=== PATIENT | female | born 1995 | race African-American/Black ===

== ENCOUNTER 2016-11-10 15:48 | Emergency (ER) | payer MEDICAID ==
[~2016-11-10] VITALS: Ht 177.8 cm; Wt 58.1 kg
[~2016-11-10 15:48] MED LIST: ACETAMINOPHEN-1 EAC1 ORAL; ALBUTEROL SULF8.5 GM INH; ALBUTEROL2.5 MG/3 M INH; ATARAX25 MG ORAL; AURALGAN OTIC1 DROP RIGHT EAR; BACTRIM DS TAB1 EAC1 ORAL; BENTYL10 MG ORAL; CLINDAMYCIN HC300 MG ORAL; CYCLOBENZAPRINE10 MG ORAL; DEPAKOTE500 MG PO; DIPHENHYDRAMINE25 M1 ORAL; IBUPROFEN600 MG ORAL; KEFLEX500 MG ORAL; LORATADINE10 M2 PO; MONTELUKAST SOD10 MG ORAL; MYLANTA LIQUID355 ML PO; OFLOXACIN10 ML OP; PHENAZOPYRIDIN100 MG ORAL; PROPYLTHIOURACI50 MG PO; PROTONIX40 MG PO; QUETIAPINE FUM200 MG ORAL; QVAR7.3 GM INH; TAPAZOLE10 M1 PO; VIBRAMYCIN100 MG ORAL; ZOFRAN ODT4 MG ORAL
[2016-11-10 16:05] VITALS: BP 106/72
[2016-11-10] MEDS ORDERED: Metoclopramide 10mg/2ml Inj IVP ONE (16:30)
--- NOTE | 2016-11-10 16:56 | Emergency Room Report ---
History of Present Illness General Chief Complaint: Head Injury Present Illness HPI The patient is a 20-year-old female presenting for headache and dizziness which began 2 weeks prior after briefly losing consciousness and falling to the floor. The patient states that she was at a marijuana dispensary 2 weeks prior , felt dizzy, and was reported to be unconscious for 5 minutes per her sister. The patient states that this has never happened in the past. Pt does admit to mild nausea but denies vomiting. Pt denies blurred vision, abd pain, neck pain/ stiffness, SOB, CP The patient also has a history of eczema and is complaining of a rash which has noticed of the face, arms, torso, and legs. This is described as itchy. The pt admits to recently using new detergent. Allergies: Coded Allergies: PEANUT (Verified Allergy, Severe, ALL NUTS, 08/16/16) CITRUS AND DERIVATIVES (Unverified Allergy, Unknown, 08/16/16) STRAWBERRY (Unverified Allergy, Unknown, 08/16/16) Patient History Past Medical History: see triage record Pertinent Family History: none Last Menstrual Period: n/a (norplant) Reviewed Nursing Documentation: PMH: Agreed, PSxH: Agreed Nursing Documentation-PMH Past Medical History: No History, Except For Hx Asthma: Yes Hx Gastrointestinal Problems: Yes - stomach ulcers Review of Systems All Other Systems: negative except mentioned in HPI Physical Exam Vital Signs Date Time Temp Pulse Resp B/P Pulse Ox O2 Delivery O2 Flow Rate FiO2 11/10/16 15:54 98.2 116 18 106/72 99 Room Air Sp02 EP Interpretation: reviewed, normal General Appearance: no apparent distress, alert, GCS 15, non-toxic Head: normocephalic, atraumatic Eyes: bilateral eye PERRL, bilateral eye normal inspection ENT: hearing grossly normal, normal pharynx, no angioedema, normal voice Neck: full range of motion, supple/symm/no masses Respiratory: chest non-tender, lungs clear, normal breath sounds, no wheezing, speaking full sentences Cardiovascular #1: regular rate, rhythm, no edema Gastrointestinal: normal bowel sounds, non tender, soft, non-distended, no guarding, no rebound Genitourinary: normal inspection, no CVA tenderness Musculoskeletal: back normal, gait/station normal, normal range of motion, non- tender Neurologic: alert, oriented x3, responsive, motor strength/tone normal, sensory intact, speech normal Psychiatric: judgement/insight normal, memory normal, mood/affect normal, no suicidal/homicidal ideation Skin: warm/dry, well hydrated, rash - erythematous pruritic rash of bilat arms , torso, and legs. Eczematous rash of bilat antecubital areas Medical Decision Making PA Attestation Dr. Ling is my supervising physician. Patient management was discussed with my supervising physician Diagnostic Impression: Primary Impression: Contact dermatitis Additional Impressions: Concussion Eczema ER Course The patient is a 20-year-old female presenting for headache and dizziness which began 2 weeks prior after briefly losing consciousness and falling to the floor. DDx: migraine, concussion, dehydration, drug abuse, , eczema, contact dermatitis, scabies PE: vitals WNL. NAD. Head NC/AT. PERRL. CN II-XII intact. erythematous pruritic rash of bilat arms, torso, and legs. Eczematous rash of bilat antecubital areas labs: CBC: mild leukocytosis. No anemia. CMP: unremarkable. All WNL. UA: unremarkable. IV fluids given with reglan. Pt feels better. EKG unremarkable. CT head unremarkable. The patient will be discharged and is advised she needs to rest and see primary care physician. Patient is given prescription for triamcinolone and hydrocortisone Laboratory Tests Test 11/10/16 16:43 White Blood Count 12.3 K/UL (4.8-10.8) H Red Blood Count 4.44 M/UL (4.20-5.40) Hemoglobin 13.9 G/DL (12.0-16.0) Hematocrit 42.8 % (37.0-47.0) Mean Corpuscular Volume 96 FL (80-99) Mean Corpuscular Hemoglobin 31.3 PG (27.0-31.0) H Mean Corpuscular Hemoglobin Concent 32.5 G/DL (32.0-36.0) Red Cell Distribution Width 11.9 % (11.6-14.8) Platelet Count 379 K/UL (150-450) Mean Platelet Volume 5.8 FL (6.5-10.1) L Neutrophils (%) (Auto) 73.4 % (45.0-75.0) Lymphocytes (%) (Auto) 17.9 % (20.0-45.0) L Monocytes (%) (Auto) 2.8 % (1.0-10.0) Eosinophils (%) (Auto) 5.2 % (0.0-3.0) H Basophils (%) (Auto) 0.7 % (0.0-2.0) Urine HCG, Qualitative Negative Sodium Level 141 mEQ/L (135-145) Potassium Level 4.0 mEQ/L (3.4-4.9) Chloride Level 101 mEQ/L (98-107) Carbon Dioxide Level 27 mEQ/L (20-30) Anion Gap 13 (5-15) Blood Urea Nitrogen 7 mg/dL (7-23) Creatinine 0.8 mg/dL (0.5-0.9) Estimate Glomerular Filtration Rate > 60 mL/min (>60) Glucose Level 103 mg/dL (74-106) Calcium Level 9.3 mg/dL (8.6-10.2) Total Bilirubin 0.6 mg/dL (0.0-1.2) Aspartate Amino Transferase (AST) 25 U/L (5-40) Alanine Aminotransferase (ALT) 21 U/L (3-33) Alkaline Phosphatase 70 U/L (35-104) Total Protein 7.3 g/dL (6.6-8.7) Albumin 3.9 g/dL (3.5-5.2) Globulin 3.4 g/dL Albumin/Globulin Ratio 1.1 (1.0-2.7) Lab Results Impression CBC: mild leukocytosis. No anemia. CMP: unremarkable. All WNL. UA: unremarkable. EKG Diagnostic Results Rate: normal - 81 Rhythm: NSR ST Segments: no acute changes ASA given to the pt in ED: No PA Scribe Text EKG was reviewed and read with my supervising physician. No acute ST segment changes are seen. Normal rate and rhythm. No acute changes. CT/MRI/US Diagnostic Results CT/MRI/US Diagnostic Results : Imaging Test Ordered: CT head Impression Unremarkable. Last Vital Signs Date Time Temp Pulse Resp B/P Pulse Ox O2 Delivery O2 Flow Rate FiO2 11/10/16 16:05 98.2 80 18 106/72 99 Room Air Status: improved Disposition: HOME, SELF-CARE Condition: Improved Scripts Triamcinolone Acet (Triamcinolone Acetonide) 15 Gm Cream..g. 15 GM TP Q12HR, #15 GM Prov: USHA MCLEOD 11/10/16 Petrolatum,White (AQUAPHOR) 99 Gm Oint...g. 99 GM TP Q8HR, #99 GM Prov: USHA MCLEOD 11/10/16 Hydrocortisone (HYDROCORTISONE) 28.35 Gm Cream..g. 28.35 GM TP Q8HR, #28 GM Prov: USHA MCLEOD 11/10/16 Referrals: [facility] (PCP) USHA MCLEOD Nov 10, 2016 16:56
[2016-11-10 17:11] LABS: ALANINE AMINOTRANSFERASE 21 U/L (3-33); ALBUMIN/GLOBULIN RATIO 1.1 (1.0-2.7); ANION GAP 13 (5-15); ASPARTATE AMINO TRANSFERASE 25 U/L (5-40); CALCIUM 9.3 mg/dL (8.6-10.2); CARBON DIOXIDE 27 mEQ/L (20-30); CHLORIDE 101 mEQ/L (98-107); CREATININE 0.8 mg/dL (0.5-0.9); GLOMERULAR FILTRATION RATE > 60 mL/min (>60); HEMOLYSIS 4; SODIUM 141 mEQ/L (135-145); TOTAL PROTEIN 7.3 g/dL (6.6-8.7)
[2016-11-10 17:24] LABS: BASOPHILS % (AUTO) 0.7 % (0.0-2.0); EOSINOPHILS % (AUTO) 5.2 % (0.0-3.0); LYMPHOCYTES % (AUTO) 17.9 % (20.0-45.0); MEAN CORPUSCULAR HEMOGLOBIN 31.3 PG (27.0-31.0); MEAN CORPUSCULAR HGB CONC 32.5 G/DL (32.0-36.0); MEAN CORPUSCULAR VOLUME 96 FL (80-99); MEAN PLATELET VOLUME 5.8 FL (6.5-10.1); MONOCYTES % (AUTO) 2.8 % (1.0-10.0); NEUTROPHILS % (AUTO) 73.4 % (45.0-75.0); PLATELET COUNT 379 K/UL (150-450); RED BLOOD COUNT 4.44 M/UL (4.20-5.40); RED CELL DISTRIBUTION WIDTH 11.9 % (11.6-14.8); WHITE BLOOD COUNT 12.3 K/UL (4.8-10.8)
[2016-11-10] MEDS ORDERED: AQUAPHOR99 GM TP (18:48)
[2016-11-10] MEDS ORDERED: KENALOG 0.025%15 GM TP (18:48)
[2016-11-10] MEDS ORDERED: HYDROCORTISO28.35 GM TP (18:48)
[2016-11-10 18:55] VITALS: BP 110/69
--- NOTE | 2016-11-11 21:28 | Cardiology Report ---
APPROVED REPORT EKG Measurement Heart [id number] ND [id number] Normal sinus rhythm Normal ECG
--- NOTE | 2016-11-12 15:59 | Diagnostic Imaging Report ---
Indications: Fall, head trauma, pain Technique: Continuous helical CT imaging of the brain was performed with automatic exposure control on a Siemens sensation [address] scanner. Axial and coronal images were reconstructed at 5 mm slice thickness and interval. CTDI volume(s): 70 mGy Total DLP: 1269 mGy-cm Findings: Comparison: None. Intracranial anatomy is unremarkable. No evidence of mass or hemorrhage, other attenuation abnormality, mass effect, midline shift, hydrocephalus or increased intracranial pressure. Bone window images are unremarkable. Visualized paranasal sinuses and mastoid air cells are clear. IMPRESSION: Negative noncontrast CT scan of the brain --no evidence of acute injury. Written preliminary report placed in PACS 11/10/[address] scanner at [facility] is accredited by the [employer] and the scans are performed using protocols designed to limit radiation exposure to as low as reasonably achievable to attain images of sufficient resolution adequate for diagnostic evaluation.
[2017-02-10] MEDS ORDERED: PREDNISONE20 MG ORAL (12:13)
== END 2016-11-10 19:25 | disposition home or self-care (01) ==
LOC: EMR 16:12
DX: S06.0X1A Concussion with loss of consciousness of 30 minutes or less, initial encounter (principal); W18.30XA Fall on same level, unspecified, initial encounter; Y92.89 Other specified places as the place of occurrence of the external cause; Y99.8 Other external cause status; L25.9 Unspecified contact dermatitis, unspecified cause; J45.909 Unspecified asthma, uncomplicated; Z87.11 Personal history of peptic ulcer disease; Z91.018 Allergy to other foods; Z91.010 Allergy to peanuts
CPT/HCPCS: 36415; 70450; 80053; 81025; 85025; 93005; 96361; 96374; 99284; J2765

== ENCOUNTER 2016-11-13 16:18 | Emergency (ER) | payer MEDICAID ==
[~2016-11-13] VITALS: Ht 177.8 cm; Wt 58.1 kg
[~2016-11-13 16:18] MED LIST changes: +AQUAPHOR99 GM TP; +HYDROCORTISO28.35 GM TP; +KENALOG 0.025%15 GM TP
[2016-11-13 16:54] VITALS: BP 106/73
[2016-11-13] MEDS ORDERED: Acetaminophen 500mg (ES) tab ORAL ONE (17:15)
--- NOTE | 2016-11-13 17:17 | Emergency Room Report ---
History of Present Illness General Chief Complaint: General Complaint Source: Patient Present Illness HPI 21 YO female The emergency department complaining of intermittent headaches with progressive onset status post concussion over one week ago that was evaluated here in the emergency department. Pt. reports MCELROY as frontal 9/10, no photophobia, no visual or auditory changes. Denies neck stiffness or pain. Patient denies nausea, vomiting, fevers or chills. Patient also reports improvement in her eczema however she is out of her triamcinolone cream and will require medication refill. Pt. reports dryness and itching to the forearms and bilateral a/C region. Denies CP, Palpitations, LOC, AMS, dizziness, Changes in Vision, Sensation, paresthesias, or a sudden severe headache. Allergies: Coded Allergies: PEANUT (Verified Allergy, Severe, ALL NUTS, 08/16/16) CITRUS AND DERIVATIVES (Unverified Allergy, Unknown, 08/16/16) STRAWBERRY (Unverified Allergy, Unknown, 08/16/16) Patient History Past Medical History: see triage record Past Surgical History: none Last Menstrual Period: 2013 Now: No Immunizations: UTD Reviewed Nursing Documentation: PMH: Agreed, PSxH: Agreed Nursing Documentation-PMH Past Medical History: No History, Except For Hx Asthma: Yes Hx Gastrointestinal Problems: Yes - stomach ulcers Review of Systems All Other Systems: negative except mentioned in HPI Physical Exam Vital Signs Date Time Temp Pulse Resp B/P Pulse Ox O2 Delivery O2 Flow Rate FiO2 11/13/16 16:51 98.4 100 14 106/73 97 Room Air Sp02 EP Interpretation: reviewed, normal General Appearance: no apparent distress, alert, GCS 15, non-toxic Head: normocephalic, atraumatic Eyes: bilateral eye PERRL, bilateral eye normal inspection ENT: hearing grossly normal, normal pharynx, no angioedema, normal voice Neck: full range of motion, no meningismus, no bony tend, supple/symm/no masses Respiratory: chest non-tender, lungs clear, normal breath sounds, speaking full sentences Cardiovascular #1: regular rate, rhythm, no edema Gastrointestinal: no rebound Musculoskeletal: back normal, gait/station normal, normal range of motion, non- tender, no calf tenderness Neurologic: alert, oriented x3, responsive, motor strength/tone normal, sensory intact, cerebellar normal, normal gait, speech normal, other - negative zambrano's Psychiatric: judgement/insight normal, memory normal, mood/affect normal, no suicidal/homicidal ideation Skin: normal color, warm/dry, well hydrated, rash - dryness, and obvious excoriations to the bilateral flexural surfaces of the upper extremities. no erythema or crusting noted. Lymphatic: no adenopathy Medical Decision Making PA Attestation Dr. Rivera is my supervising Physician whom patient management has been discussed with. Diagnostic Impression: Primary Impression: Eczema Qualified Codes: L20.82 - Flexural eczema Additional Impression: Head ache Qualified Codes: R51 - Headache ER Course Pt. presents to the ED c/o medication refill for eczema cream in addition to MCELROY intermittently with progressive onset . Ddx considered but are not limited to cellulitis, scabies, shingles, varicella, dermatitis, urticaria, eczema, tinea, migraine, post concussive syndrome, subdural hematoma. Vital signs: are WNL, pt. is afebrile H&PE are most consistent with eczema and non-intractable MCELROY. requiring medication refill. ORDERS: none required at this time, the diagnosis is clinical ED INTERVENTIONS: -500mg Tylenol PO - Re-evaluation: pt. states her MCELROY has subsided with above interventions. DISCHARGE: At this time pt. is stable for d/c to home. Will provide printed patient care instructions, and any necessary prescriptions. Care plan and follow up instructions have been discussed with the patient prior to discharge. Last Vital Signs Date Time Temp Pulse Resp B/P Pulse Ox O2 Delivery O2 Flow Rate FiO2 11/13/16 16:54 98.4 85 14 106/73 97 Room Air Disposition: HOME, SELF-CARE Condition: Stable Scripts Diphenhydramine Hcl* (BENADRYL*) 25 Mg Capsule 25 MG ORAL Q6H Y for Itching, #30 CAP Prov: Betty Zapata P.A. 11/13/16 Acetaminophen* (TYLENOL EXTRA STRENGTH*) 500 Mg Tablet 500 MG ORAL Q6H, #30 TAB 0 Refills Prov: Betty Zapata P.A. 11/13/16 Triamcinolone Acet (Triamcinolone Acetonide) 15 Gm Cream..g. 1 APPLIC TOPIC BID, #15 GM 3 Refills Prov: Betty Zapata P.A. 11/13/16 Referrals: NON PHYSICIAN (PCP) Patient Instructions: Eczema, General Headache Without Cause, Lzid-ar-Nsea Additional Instructions: Take medications as directed. Follow up with Neurologist in 3 days Return sooner to ED if new symptoms occur, or current symptoms become worse. Betty Zapata Nov 13, 2016 17:17
[2016-11-13] MEDS ORDERED: KENALOG 0.025%15 GM TOPIC (17:19)
[2016-11-13] MEDS ORDERED: TYLENOL EXTRA500 MG ORAL (17:19)
[2016-11-13] MEDS ORDERED: BENADRYL25 MG ORAL (17:30)
[2016-11-13 17:57] VITALS: BP 106/73
[2017-02-10] MEDS ORDERED: PREDNISONE20 MG ORAL (12:13)
== END 2016-11-13 17:57 | disposition home or self-care (01) ==
LOC: EMR 17:13
DX: R51 Headache (principal); L30.9 Dermatitis, unspecified; J45.909 Unspecified asthma, uncomplicated; Z91.010 Allergy to peanuts; Z91.018 Allergy to other foods
CPT/HCPCS: 99282

== ENCOUNTER 2016-12-01 09:52 | Emergency (ER) | payer MEDICAID ==
[~2016-12-01] VITALS: Ht 180.3 cm; Wt 59.0 kg
[~2016-12-01 09:52] MED LIST changes: +BENADRYL25 MG ORAL; +KENALOG 0.025%15 GM TOPIC; +TYLENOL EXTRA500 MG ORAL
[2016-12-01 10:00] VITALS: BP 118/69
[2016-12-01] MEDS ORDERED: OFLOXACIN5 ML OT (10:21)
[2016-12-01 10:35] VITALS: BP 118/69
--- NOTE | 2016-12-01 10:41 | Emergency Room Report ---
History of Present Illness General Chief Complaint: Earache Present Illness HPI 21-year-old female presents to ED complaining of left ear pain x2 days. Pain is sharp. 10 out of 10. Nonradiating. Worse with palpation. No other aggravating or relieving factors. Denies fevers or chills. Denies cough. Denies sore throat. Denies sick contacts or recent travel. Denies any other associated symptoms Allergies: Coded Allergies: PEANUT (Verified Allergy, Severe, ALL NUTS, 08/16/16) CITRUS AND DERIVATIVES (Unverified Allergy, Unknown, 08/16/16) STRAWBERRY (Unverified Allergy, Unknown, 08/16/16) Patient History Past Medical History: asthma Past Surgical History: none Pertinent Family History: none Social History: Denies: alcohol use, drug use, smoking Last Menstrual Period: Birthcontrol implant Now: No Immunizations: UTD Reviewed Nursing Documentation: PMH: Agreed, PSxH: Agreed Nursing Documentation-PMH Hx Asthma: Yes Hx Diabetes: No - hypothyroid Hx Gastrointestinal Problems: Yes - stomach ulcers Review of Systems All Other Systems: negative except mentioned in HPI Physical Exam Vital Signs Date Time Temp Pulse Resp B/P Pulse Ox O2 Delivery O2 Flow Rate FiO2 12/01/16 09:55 98.2 115 16 118/69 98 Room Air Sp02 EP Interpretation: reviewed, normal General Appearance: no apparent distress, alert, GCS 15, non-toxic Head: normocephalic Eyes: bilateral eye PERRL, bilateral eye normal inspection ENT: hearing grossly normal, normal pharynx, no angioedema, normal voice, other - L ear canal swollen. Neck: full range of motion, supple/symm/no masses Respiratory: chest non-tender, lungs clear, normal breath sounds, speaking full sentences Cardiovascular #1: normal inspection Gastrointestinal: normal inspection Rectal: deferred Genitourinary: no CVA tenderness Musculoskeletal: normal inspection Neurologic: alert, oriented x3, responsive, motor strength/tone normal, sensory intact, speech normal Psychiatric: normal inspection Skin: normal inspection Lymphatic: normal inspection Medical Decision Making Diagnostic Impression: Primary Impression: Otitis externa Qualified Codes: H60.502 - Unspecified acute noninfective otitis externa, left ear ER Course Hospital Course 21-year-old F presents to ED with pain L ear. no fever. Differential diagnoses include: TM perforation, otitis externa, otitis media Clinical course Patient placed on stretcher. After initial history, physical exam reveals a young female in no acute distress. Left TM unremarkable. Left ear canal markedly swollen, painful to palpation. Consistent with otitis externa Diagnosis - otitis externa Stable and discharged to home with Rx ofloxacin otic. Followup with PMD. Return to ED if symptoms recur or worsen Last Vital Signs Date Time Temp Pulse Resp B/P Pulse Ox O2 Delivery O2 Flow Rate FiO2 12/01/16 09:55 98.2 115 16 118/69 98 Room Air Status: improved Disposition: HOME, SELF-CARE Condition: Stable Scripts Ofloxacin (OFLOXACIN) 5 Ml Drops 10 DROP OT BID for 14 Days, ML Prov: JIMMY CUADRA M.D. 12/01/16 Patient Instructions: Otitis Externa, [id number] JIMMY CUADRA M.D. Dec 01, 2016 10:41
[2017-02-10] MEDS ORDERED: PREDNISONE20 MG ORAL (12:13)
== END 2016-12-01 10:35 | disposition home or self-care (01) ==
LOC: EMR 10:14
DX: H60.502 Unspecified acute noninfective otitis externa, left ear (principal); J45.909 Unspecified asthma, uncomplicated; E03.9 Hypothyroidism, unspecified; Z91.010 Allergy to peanuts; Z91.018 Allergy to other foods
CPT/HCPCS: 99283

== ENCOUNTER → 2016-12-17 | Emergency (ER) | payer MEDICAID ==
[~2016-12-17] VITALS: Ht 177.8 cm; Wt 54.4 kg
[~2016-12-17] MED LIST changes: +OFLOXACIN5 ML OT; +PREDNISONE20 MG ORAL
--- NOTE | 2016-12-17 14:57 | Emergency Room Report ---
History of Present Illness General Chief Complaint: General Complaint Source: EMS Present Illness HPI 21-year-old female presents to the emergency department complaining of anxiety attack with hyperventilation. Patient states she's had multiple episodes lately and her mother gave her a 2 mg "Zani bar "which alleviated her symptoms temporarily. Patient states she began having anxiety attack again this afternoon for which her sister called 911. Patient states that she recently had her dosage of Seroquel decreased, and she has noted heightened anxiety ever since. Patient has not been diagnosed with anxiety she states her mother gave her medication which helped her symptoms have not medication is for anxiety. Denies CP, Palpitations, LOC, AMS, dizziness, Changes in Vision, Sensation, paresthesias, or a sudden severe headache. Allergies: Coded Allergies: PEANUT (Verified Allergy, Severe, ALL NUTS, 08/16/16) CITRUS AND DERIVATIVES (Unverified Allergy, Unknown, 08/16/16) STRAWBERRY (Unverified Allergy, Unknown, 08/16/16) Patient History Past Medical History: see triage record Past Surgical History: none Pertinent Family History: none Now: No Immunizations: UTD Reviewed Nursing Documentation: PMH: Agreed, PSxH: Agreed Nursing Documentation-PMH Hx Asthma: Yes Hx Diabetes: No - hypothyroid Hx Gastrointestinal Problems: Yes - stomach ulcers Review of Systems All Other Systems: negative except mentioned in HPI Physical Exam Vital Signs Date Time Temp Pulse Resp B/P Pulse Ox O2 Delivery O2 Flow Rate FiO2 12/17/16 14:23 98.8 98 20 122/67 99 Room Air Sp02 EP Interpretation: reviewed, normal General Appearance: no apparent distress, alert, GCS 15, non-toxic Head: normocephalic, atraumatic Eyes: bilateral eye PERRL, bilateral eye normal inspection ENT: hearing grossly normal, normal pharynx, no angioedema, normal voice Neck: full range of motion, supple/symm/no masses Respiratory: chest non-tender, lungs clear, normal breath sounds, speaking full sentences Cardiovascular #1: regular rate, rhythm, no edema Rectal: deferred Musculoskeletal: back normal, gait/station normal, normal range of motion, non- tender, no calf tenderness Neurologic: alert, oriented x3, responsive, motor strength/tone normal, sensory intact, speech normal Psychiatric: judgement/insight normal, memory normal, mood/affect normal, no suicidal/homicidal ideation, anxious - Pt. repeatedly mentions how "xanax and Zani bars" work well to alleviate her symptoms. Skin: normal color, no rash, warm/dry, well hydrated Lymphatic: no adenopathy Medical Decision Making PA Attestation Dr. Flood is my supervising Physician whom patient management has been discussed with. Diagnostic Impression: Primary Impression: Acute hyperventilation syndrome ER Course 21-year-old female presents to the emergency department complaining of anxiety attack with hyperventilation. Patient states she's had multiple episodes lately and her mother gave her a 2 mg "Zani bar "which alleviated her symptoms temporarily. Patient states she began having anxiety attack again this afternoon for which her sister called 911. Patient states that she recently had her dosage of Seroquel decreased, and she has noted heightened anxiety ever since. Ddx considered but are not limited to anxiety, VT, PE, asthma, thyroid storm, hyperthyroid, EPS, Drug-seeking Vital signs: are WNL, pt. is afebrile H&PE are most consistent with hyperventilation reaction, and mild drug seeking- behavior ORDERS: none required at this time, the diagnosis is clinical ED INTERVENTIONS: -none required at this time, VS stable, pt. NAD. - pt. is given [facility] resource information and urged to follow up there for evaluation of anxiety and any necessary medication management. -d/w pt. to d/c use of medications not prescribed to her. DISCHARGE: At this time pt. is stable for d/c to home. Will provide printed patient care instructions, and any necessary prescriptions. Care plan and follow up instructions have been discussed with the patient prior to discharge. Last Vital Signs Date Time Temp Pulse Resp B/P Pulse Ox O2 Delivery O2 Flow Rate FiO2 12/17/16 14:23 98.8 98 20 122/67 99 Room Air Disposition: HOME, SELF-CARE Condition: Stable Patient Instructions: Hyperventilation Additional Instructions: Take any previously prescribed medications as directed. Follow up with PCP in 3-5 days . Review resource information for [facility], for medication management, and evaluation of your anxiety. Return sooner to ED if new symptoms occur, or current symptoms become worse. - Please note that this Emergency Department Report was dictated using [employer] tracker technology software, occasionally this can lead to erroneous entry secondary to interpretation by the dictation equipment. Betty Zapata Dec 17, 2016 14:57
[2016-12-17 15:00] VITALS: BP 122/67
[2016-12-17 15:23] VITALS: BP 122/67
== END | disposition home or self-care (01) ==
LOC: EDUNIT# 14:22 → EDBD 14:26 → EMR 15:20
DX: R06.4 Hyperventilation (principal); F41.9 Anxiety disorder, unspecified; Z91.010 Allergy to peanuts; Z91.018 Allergy to other foods; Z87.19 Personal history of other diseases of the digestive system; Z87.09 Personal history of other diseases of the respiratory system
CPT/HCPCS: 99281

== ENCOUNTER → 2017-02-10 | Emergency (ER) | payer MEDICAID ==
[~2017-02-10] VITALS: Ht 177.8 cm; Wt 63.5 kg
[~2017-02-10] MED LIST changes: +Bacitracin Oint UD TOPIC ONE; +HydrOXYzine 25mg tab ORAL ONE; +PredniSONE 20mg tab ORAL ONE
[2017-02-10 11:41] VITALS: BP 110/70
[2017-02-10 12:22] VITALS: BP 118/72
[2017-02-10 12:23] VITALS: BP 110/70
--- NOTE | 2017-02-12 13:27 | Emergency Room Report ---
History of Present Illness General Chief Complaint: Skin Rash/Abscess Source: Patient Present Illness HPI Patient is a 21-year-old female who presented after having increased skin rash. Patient had a gradual onset of symptoms. Patient had increased itchiness to her lower extremities as well as the trunk. Patient reported having recently been hospitalized at [facility] for similar symptoms. The patient had been advised followup with a director of acquisitions however she had not done at this point. The patient denied recent fever. She is not currently taking steroids. She reported having had been taking multiple medications previously prescribed. Allergies: Coded Allergies: PEANUT (Verified Allergy, Severe, ALL NUTS, 08/16/16) CITRUS AND DERIVATIVES (Unverified Allergy, Unknown, 08/16/16) STRAWBERRY (Unverified Allergy, Unknown, 08/16/16) Patient History Past Medical History: see triage record Last Menstrual Period: last week Now: No Reviewed Nursing Documentation: PMH: Agreed, PSxH: Agreed Nursing Documentation-PMH Past Medical History: No History, Except For Hx Asthma: Yes Hx Gastrointestinal Problems: Yes - stomach ulcers Review of Systems All Other Systems: negative except mentioned in HPI Physical Exam Vital Signs Date Time Temp Pulse Resp B/P Pulse Ox O2 Delivery O2 Flow Rate FiO2 02/10/17 10:54 98.1 126 18 110/70 99 Room Air General Appearance: well appearing, no apparent distress, alert, GCS 15 Head: normocephalic, atraumatic ENT: hearing grossly normal, normal voice Neck: full range of motion, supple Respiratory: no respiratory distress, speaking full sentences Cardiovascular #1: normal inspection Musculoskeletal: normal inspection, no calf tenderness Neurologic: normal inspection, alert, oriented x3, responsive, normal gait Psychiatric: mood/affect normal Skin: other - generalized excoriated scaly patches without erythema or discharge Medical Decision Making Diagnostic Impression: Primary Impression: Eczema ER Course Patient presented for skin rash. Differential diagnosis included was not limited to Campos-Pierre syndrome, urticaria, erythema multiforme, contact dermatitis. Patient's benign exam and does not appear to require any further imaging or laboratory testing at this time. The patient appears to have a eczema exacerbation. Patient does not appear to have a significant mucosal involvement which would suggest Campos-Pierre syndrome. The patient's do not appear to be secondarily infected at this time. The patient's skin lesions appear to be primarily to extensor surfaces her extremities. Patient was given prednisone.Topical antibiotics were applied patient's skin lesions. She is advised to followup with outpatient dermatology as previously. Patient was to return if she began having fever or increased discharge from her wound. Last Vital Signs Date Time Temp Pulse Resp B/P Pulse Ox O2 Delivery O2 Flow Rate FiO2 02/10/17 12:23 98.1 104 18 110/70 99 Room Air Status: improved Disposition: HOME, SELF-CARE Condition: Stable Scripts Prednisone* (PREDNISONE*) 20 Mg Tablet 40 MG ORAL DAILY, #10 TAB Prov: Miguel Washington 02/10/17 Referrals: NON PHYSICIAN (PCP) Patient Instructions: Eczema Miguel Washington Feb 12, 2017 13:27
== END | disposition home or self-care (01) ==
LOC: EMR 11:30
DX: L30.9 Dermatitis, unspecified (principal); J45.909 Unspecified asthma, uncomplicated; Z91.010 Allergy to peanuts; Z91.018 Allergy to other foods
CPT/HCPCS: 99283

== ENCOUNTER 2017-08-31 12:43 | Emergency (ER) | payer MEDICAID ==
[~2017-08-31] VITALS: Ht 170.2 cm; Wt 59.0 kg
[~2017-08-31 12:43] MED LIST changes: -Bacitracin Oint UD TOPIC ONE; -HydrOXYzine 25mg tab ORAL ONE; -PredniSONE 20mg tab ORAL ONE
[2017-08-31 13:06] VITALS: BP 115/76
[2017-08-31 13:27] LABS: APPEARANCE,URINE CLEAR; BILIRUBIN, URINE NEGATIVE (NEGATIVE); GLUCOSE, URINE (UA) NEGATIVE (NEGATIVE); KETONES,URINE NEGATIVE (NEGATIVE); LEUKOCYTE ESTERASE ,URINE 1+ (NEGATIVE); NITRITE,URINE NEGATIVE (NEGATIVE); PH,URINE 7 (4.5-8.0); PROTEIN,URINE NEGATIVE (NEGATIVE); UROBILINOGEN,URINE 1 MG/DL (0.0-1.0)
[2017-08-31 13:28] LABS: COLOR,URINE YELLOW
[2017-08-31] MEDS ORDERED: Lidocaine 1% MPF 10mg/ml 5ml ONE (13:38)
[2017-08-31] MEDS ORDERED: Lidocaine 1% MPF 10mg/ml 5ml INJ ONE (13:45)
[2017-08-31] MEDS ORDERED: DiphenhydrAMINE 50mg/ml Inj IM ONE (14:15)
--- NOTE | 2017-08-31 14:36 | Emergency Room Report ---
History of Present Illness General Chief Complaint: General Complaint Present Illness HPI 22-year-old female presents to the emergency department complaining of new onset of vaginal discharge x2 days. Patient describes white discharge she denies itching. Patient reports recent unprotected intercourse. Patient denies recent use of antibiotics. Patient also states she is left knee pain that she rates as 7/10 in severity. Patient states that she was diagnosed with knee sprain which may require MRI and is currently taking Gillett and in a knee immobilizer. She denies any trauma or fall. denies swelling, redness or increase in pain from initial injury or changes in character to her the symptoms. Patient denies dysuria, hematuria, frequency or . Patient denies nausea, vomiting she reports some cramping abdominal pain with loose stools x2 days denies fevers, chills, blood in the stool or black tarry stool. She also reports itchy rash with a history of eczema to the upper arms and anterior chest/neck. Denies lesions/rashes elsewhere on the body. Denies new medications or body washes or creams. Denies swelling of the lips, tongue , throat or airway. Denies wheezing, or shortness of breath. Denies recent travel , recent illness or ill contacts. denies blisters, oral lesions, or sloughing of the skin. Denies CP, Palpitations, LOC, AMS, dizziness, Changes in Vision, Sensation, paresthesias, or a sudden severe headache. Allergies: Coded Allergies: PEANUT (Verified Allergy, Severe, ALL NUTS, 08/16/16) CITRUS AND DERIVATIVES (Unverified Allergy, Unknown, 08/16/16) STRAWBERRY (Unverified Allergy, Unknown, 08/16/16) Patient History Past Medical History: see triage record Past Surgical History: none Pertinent Family History: none Now: No Reviewed Nursing Documentation: PMH: Agreed, PSxH: Agreed Nursing Documentation-PMH Hx Asthma: Yes Hx Gastrointestinal Problems: Yes - stomach ulcers Review of Systems All Other Systems: negative except mentioned in HPI Physical Exam Vital Signs Date Time Temp Pulse Resp B/P (MAP) Pulse Ox O2 Delivery O2 Flow Rate FiO2 08/31/17 12:56 98.1 104 20 115/76 99 Room Air Sp02 EP Interpretation: reviewed, normal General Appearance: no apparent distress, alert, GCS 15, non-toxic Head: normocephalic, atraumatic Eyes: bilateral eye normal inspection, bilateral eye PERRL ENT: hearing grossly normal, normal pharynx, no angioedema, normal voice, other - no oral lesions Neck: full range of motion Respiratory: lungs clear, normal breath sounds, no respiratory distress, no wheezing, speaking full sentences Cardiovascular #1: regular rate, rhythm, normal capillary refill Cardiovascular #2: 2+ dorsalis pedis (L) Gastrointestinal: normal bowel sounds, non tender, soft, no guarding, no rebound Rectal: deferred Genitourinary: normal inspection, no CVA tenderness, adnexa normal, ext genitalia/vag normal, other Musculoskeletal: back normal, gait/station normal, normal range of motion, non- tender, no calf tenderness, other - modified store bought knee immobilizer on the left knee, no pain out of proportion to exam, no erythema, pt is NVI. Neurologic: alert, oriented x3, responsive, motor strength/tone normal, sensory intact, speech normal Skin: normal color, warm/dry, well hydrated, rash - dry scaly thickened rash to flexural surfaces of the wrists, a/c's, the dorsal knuckles, the anterior chest, and the anterior and posterior neck , no blisters, no vesicle, no oral lesions, no erythema or increased temperature to palpation. Lymphatic: no adenopathy Medical Decision Making PA Attestation Dr. Washington is my supervising Physician whom patient management has been discussed with. Diagnostic Impression: Primary Impression: Vaginal discharge Additional Impressions: Knee pain, left Qualified Codes: M25.562 - Pain in left knee Eczema Qualified Codes: L20.82 - Flexural eczema ER Course 22-year-old female presents to the emergency department complaining of new onset of vaginal discharge x2 days. Patient describes white discharge she denies itching. Patient reports recent unprotected intercourse. Patient denies recent use of antibiotics. Patient also states she is left knee pain that she rates as 7/10 in severity. Patient states that she was diagnosed with knee sprain which may require MRI and is currently taking Gillett and in a knee immobilizer. She denies any trauma or fall. denies swelling, redness or increase in pain from initial injury or changes in character to her the symptoms. Patient denies dysuria, hematuria, frequency or . Patient denies nausea, vomiting she reports some cramping abdominal pain with loose stools x2 days denies fevers, chills, blood in the stool or black tarry stool. She also reports itchy rash with a history of eczema to the upper arms and anterior chest/neck. Denies lesions/rashes elsewhere on the body. Denies new medications or body washes or creams. Denies swelling of the lips, tongue , throat or airway. Denies wheezing, or shortness of breath. Denies recent travel , recent illness or ill contacts. denies blisters, oral lesions, or sloughing of the skin. Denies CP, Palpitations, LOC, AMS, dizziness, Changes in Vision, Sensation, paresthesias, or a sudden severe headache. Ddx considered but are not limited to UTi , STI, G & C, trichomonas, Vaginitis , cervicitis, cellulitis, DVT, compartment syndrome, knee sprain, SJS, eczema, scleroderma, allergic reaction just to name a few. Vital signs: are WNL, pt. is afebrile H&PE are most consistent with vaginal d/c with recent unprotected intercourse possible STI, non-acute previously dx knee pain with no evidence of circulatory compromise or new trauma, and exacerbation of moderate eczema and no evidence of SJS, drug reaction, anaphylaxis or airway compromise. ORDERS: - UA: WNL -Urine HCG: negative -[place]: no clue, no trich, no yeast, few bacteria. ED INTERVENTIONS: -250mg Rocephin IM -Prednisone PO -d/w pt. conservative treatment, and to follow up with a primary care provider. pt given a list of primary care clinics for follow up. d/w pt. to return to the ED with worsening or new symptoms. DISCHARGE: At this time pt. is stable for d/c to home. Will provide printed patient care instructions, and any necessary prescriptions. Care plan and follow up instructions have been discussed with the patient prior to discharge. Labs Test 08/31/17 13:00 Urine Color Yellow Urine Appearance Clear Urine pH 7 (4.5-8.0) Urine Specific [place] 1.005 (1.005-1.035) Urine Protein Negative (NEGATIVE) Urine Glucose (UA) Negative (NEGATIVE) Urine Ketones Negative (NEGATIVE) Urine Occult Blood Negative (NEGATIVE) Urine Nitrite Negative (NEGATIVE) Urine Bilirubin Negative (NEGATIVE) Urine Urobilinogen 1 MG/DL (0.0-1.0) Urine Leukocyte Esterase 1+ (NEGATIVE) Urine RBC 0-2 /HPF (0 - 2) Urine WBC 5-10 /HPF (0 - 2) Urine Squamous Epithelial Cells Few /LPF (NONE/OCC) Urine Bacteria Few /HPF (NONE) Urine HCG, Qualitative Negative Last Vital Signs Date Time Temp Pulse Resp B/P (MAP) Pulse Ox O2 Delivery O2 Flow Rate FiO2 08/31/17 13:06 98.1 20 115/76 99 Room Air 08/31/17 12:56 104 Disposition: HOME, SELF-CARE Condition: Stable Scripts Ibuprofen* (MOTRIN*) 400 Mg Tablet 400 MG ORAL THREE TIMES A DAY, #30 TAB 0 Refills Prov: Betty Zapata 08/31/17 Prednisone* (PREDNISONE*) 20 Mg Tablet 40 MG ORAL DAILY for 5 Days, #10 TAB Prov: Betty Zapata 08/31/17 Triamcinolone Acet (Triamcinolone Acetonide) 80 Gm Cream..g. 1 APPLIC TP BID, #80 GM 1 Refill Prov: Betty Zapata 08/31/17 Doxycycline Hyclate* (VIBRAMYCIN*) 100 Mg Capsule 100 MG ORAL EVERY 12 HOURS for 7 Days, #14 CAP 0 Refills Prov: Betty Zapata 08/31/17 Referrals: [facility] [place],[facility] (PCP) Patient Instructions: Eczema, Knee Pain, [id number] Additional Instructions: Take medications as directed. Follow up with a Primary Care Provider in 3-5 days, even if your symptoms have resolved. --Please review list of primary care clinics, if you do not already have a primary care provider Return sooner to ED if new symptoms occur, or current symptoms become worse. - Please note that this Emergency Department Report was dictated using [employer] technology software, occasionally this can lead to erroneous entry secondary to interpretation by the dictation equipment. Betty Zapata Aug 31, 2017 14:36
[2017-08-31] MEDS ORDERED: KENALOG 0.1% CR15 GM TP (14:41)
[2017-08-31] MEDS ORDERED: VIBRAMYCIN100 MG ORAL (14:41)
[2017-08-31] MEDS ORDERED: IBUPROFEN400 MG ORAL (14:43)
[2017-08-31] MEDS ORDERED: PREDNISONE20 MG ORAL (14:43)
[2017-08-31 14:56] VITALS: BP 114/79
== END 2017-08-31 14:57 | disposition home or self-care (01) ==
LOC: EMR 13:13
DX: N89.8 Other specified noninflammatory disorders of vagina (principal); M25.562 Pain in left knee; L20.82 Flexural eczema; J45.909 Unspecified asthma, uncomplicated; Z91.010 Allergy to peanuts; Z91.018 Allergy to other foods
CPT/HCPCS: 81003; 81025; 87210; 96372; 99284; J0696; J1200